=== PATIENT | female | born 1940 | race Caucasian/White ===

== ENCOUNTER → 2016-02-21 | Outpatient (CLI) | payer MEDICARE ==
[~2016-02-21] MED LIST: AMIT25TA20 PO; AMIT25TA9 PO; AMLO10 PO; ASPI81 PO; ASPI81TA81 PO; CALTTAB5 PO; CHOL20003 PO; CRANBERRY AZO PO; DICL-86 PO; ENOX40P SQ; GABA300C5 PO; GLUCTAB PO; MEDR2.5T2 PO; MEDR4PAK PO; METF500T PO; OMEP10CA PO; OXYC-360 PO; PERC5TAB12 PO; PRIL10CA PO; RANI150 PO; RANI150T PO; ROPI0.25 PO; ROPI0.5T PO; SIMV40TA PO; TELM1TAB56 PO; ZOCO40TA PO; [UNRECOGNIZED DRUG - CODE] PO
[2016-02-21 13:15] LABS: AUTOMATED NEUTROPHIL # 4.7 TH/MM3 (1.8-7.7); BASOPHIL # 0.1 TH/MM3 (0-0.2); BASOPHIL % 1.2 % (0.0-2.0); EOSINOPHIL # 0.2 TH/MM3 (0-0.4); EOSINOPHIL % 2.3 % (0.0-4.0); HEMATOCRIT 43.3 % (35.0-46.0); HEMO FLAGS DIFF FINAL; LYMPH % 28.5 % (9.0-44.0); LYMPHOCYTE # 2.2 TH/MM3 (1.0-4.8); MEAN CORPUSCULAR HEMOGLOBIN 30.1 PG (27.0-34.0); MEAN CORPUSCULAR HGB CONC 33.5 % (32.0-36.0); MONO % 6.6 % (0.0-8.0); NEUT % 61.4 % (16.0-70.0); PLATELET COUNT 249 TH/MM3 (150-450); RED BLOOD COUNT 4.81 MIL/MM3 (4.00-5.30); RED CELL DISTRIBUTION WIDTH 13.2 % (11.6-17.2); WHITE BLOOD COUNT 7.7 TH/MM3 (4.0-11.0)
[2016-02-21 13:23] LABS: BACTERIA, URINE RARE /hpf; BLOOD, URINE NEG (NEG); GLUCOSE,URINE NEG (NEG); KETONE, URINE NEG (NEG); MUCUS URINE FEW /lpf (OCC); NITRITE,URINE NEG (NEG); PH, URINE 6.5 (5.0-8.5); SQUAMOUS EPITHELIAL CELL URINE <1 /hpf (0-5); URINE COLOR YELLOW (YELLW/STRAW)
[2016-02-21 13:47] LABS: BICARBONATE 28.7 MEQ/L (21.0-32.0); POTASSIUM 4.1 MEQ/L (3.5-5.1)
== END ==
LOC: CPRE 12:14
PROVIDERS: ATTEND Obstetrics & Gynecology
DX: Z01.812 Encounter for preprocedural laboratory examination (principal); N85.00 Endometrial hyperplasia, unspecified
CPT/HCPCS: 36415; 80048; 81001; 85025

== ENCOUNTER → 2016-02-27 | Day surgery (SDC) | payer MEDICARE ==
[~2016-02-27] VITALS: Ht 160 cm; Wt 80.2 kg
[~2016-02-27] MED LIST changes: -AMIT25TA20 PO; -ASPI81 PO; -CRANBERRY AZO PO; -DICL-86 PO; +DO NOT ADM ANY ANTICOAGULANT DRUGS XX PRN; -ENOX40P SQ; -GLUCTAB PO; +INSULIN HUMAN REGULAR 1,000 UNITS/10 ML VIAL SQ PRN; +KETOROLAC TROMETHAMINE 30 MG/ML (IVP) VIAL IM PRN; +KETOROLAC TROMETHAMINE 60 MG/2 ML (IM) VIAL IM ONE; +LACTATED RINGER'S 1000 ML IV SCH; +METOPROLOL TARTRATE 25 MG TAB PO PRN; +ONDANSETRON HCL 4 MG/2 ML VIAL IV PUSH ONE; +ONDANSETRON HCL 4 MG/2 ML VIAL IV PUSH PRN; -OXYC-360 PO; +OXYTOCIN 10 UNIT/ML AMP ONE; -PRIL10CA PO; +PROPOFOL 200 MG/20 ML AMP IV ONE; -RANI150 PO; +SODIUM CHLORID 0.9% 500 ML IV SCH; -ZOCO40TA PO; -[UNRECOGNIZED DRUG - CODE] PO; +ceFAZolin 2 GM PREMIX 50 ML IV SCH; +oxyCODONE/ACETAMINOPHEN 5 MG/325 MG TAB PO PRN
[2016-02-27 07:17] VITALS: BP 142/57; PULSE 87; RESP 20; TEMP 98.1; O2SAT 96
[2016-02-27 10:44] VITALS: BP 116/59; PULSE 73; RESP 20; TEMP 97.9; O2SAT 99
--- NOTE | 2016-02-29 11:53 | MP ---
cc: LYNDA HOWARD MD DATE OF SURGERY 02/27/2016 PREOPERATIVE DIAGNOSIS Thickened endometrium. POSTOPERATIVE DIAGNOSIS Thickened endometrium. PROCEDURE Examination under anesthesia, hysteroscopy, endometrial resection with MyoSure. SURGEON Dr. Howard ANESTHESIA General endotracheal anesthesia, Dr. Rosales. FLUIDS 750 cc crystalloids. ESTIMATED BLOOD LOSS Minimal. URINE OUTPUT 100 cc on straight cath prior to procedure. FLUID DEFICIT DURING MYOSURE PROCEDURE 420 cc. FINDINGS The endometrial cavity was filled with several smooth-appearing polypoid lesions. PROCEDURE The patient was taken to the operating room where general anesthesia was found to be adequate. She was then prepped and draped in the normal sterile fashion in the dorsal lithotomy position. The urinary bladder was emptied of urine using sterile technique. A weighted speculum was placed in the vagina. A single-tooth tenaculum applied to the anterior lip of the cervix. The uterus sounded to approximately 9 cm. The cervix was gently dilated with Preston dilators sizes 9 through 16. The small MyoSure scope was then inserted into the endometrial cavity. The cavity was distended with saline and the cavity was noted to be filled with smooth-appearing white polypoid lesions. These were then resected with the MyoSure device and sent to pathology. Cutting time was approximately 2-1/2 minutes. Fluid deficit was approximately 420 cc. The MyoSure device and hysteroscope were removed. Hemostasis was assured. The tenaculum was removed from the anterior lip of the cervix. The weighted speculum was removed. The patient was awakened from anesthesia and transferred to the recovery room in stable condition. Pathology was endometrial curettings. MD DONAL Bray/YADIEL /9:15 AM /11:47 AM
== END | disposition home or self-care (01) ==
LOC: HSDC 05:53
PROVIDERS: ATTEND Obstetrics & Gynecology
DX: N84.0 Polyp of corpus uteri (principal); N87.9 Dysplasia of cervix uteri, unspecified; N81.9 Female genital prolapse, unspecified; R93.8 Abnormal findings on diagnostic imaging of other specified body structures; N95.2 Postmenopausal atrophic vaginitis; I10 Essential (primary) hypertension; Z72.0 Tobacco use
CPT/HCPCS: 00952; 58558; 86850; 86900; 86901; 88305; J0690; J1885; J2405; J3010; J7120; J2590

== ENCOUNTER → 2016-06-20 | Outpatient (CLI) | payer MEDICARE ==
[~2016-06-20] MED LIST changes: -DO NOT ADM ANY ANTICOAGULANT DRUGS XX PRN; -INSULIN HUMAN REGULAR 1,000 UNITS/10 ML VIAL SQ PRN; -KETOROLAC TROMETHAMINE 30 MG/ML (IVP) VIAL IM PRN; -KETOROLAC TROMETHAMINE 60 MG/2 ML (IM) VIAL IM ONE; -LACTATED RINGER'S 1000 ML IV SCH; -METOPROLOL TARTRATE 25 MG TAB PO PRN; -ONDANSETRON HCL 4 MG/2 ML VIAL IV PUSH ONE; -ONDANSETRON HCL 4 MG/2 ML VIAL IV PUSH PRN; -OXYTOCIN 10 UNIT/ML AMP ONE; -PROPOFOL 200 MG/20 ML AMP IV ONE; -SODIUM CHLORID 0.9% 500 ML IV SCH; -ceFAZolin 2 GM PREMIX 50 ML IV SCH; -oxyCODONE/ACETAMINOPHEN 5 MG/325 MG TAB PO PRN
== END ==
LOC: CPRE 10:35
PROVIDERS: ATTEND Obstetrics & Gynecology
DX: Z01.812 Encounter for preprocedural laboratory examination (principal)

== ENCOUNTER 2016-06-22 21:24 | Emergency (ER) | payer MEDICARE ==
[~2016-06-22] VITALS: Ht 167.6 cm; Wt 75.0 kg
[~2016-06-22 21:24] MED LIST changes: -ASPI81TA81 PO; -MEDR4PAK PO; -PERC5TAB12 PO; -ROPI0.25 PO
[2016-06-22 21:27] VITALS: BP 174/72; PULSE 72; RESP 16; TEMP 97.9; O2SAT 99
[2016-06-22 22:05] VITALS: BP 136/78; PULSE 80; RESP 16; O2SAT 99
--- NOTE | 2016-06-22 22:41 | PD ---
HPI Chief Complaint: Back/ Neck Pain or Injury Time Seen by Provider: 22:38 Travel History International Travel<30 days: No Contact w/Intl Traveler<30days: No Traveled to known affect area: No History of Present Illness HPI 75-year-old female presents to the emergency department by private transportation the care of family for complaint of low back to right buttock pain radiating into her right lower extremity. Patient has history of degenerative disc disease. No prior history of sciatica. No numbness tingling or weakness of the lower extremity. No bladder or bowel dysfunction. No saddle anesthesia. Patient rates pain as moderate to severe. Patient notes discomfort is worsened by range of motion and ambulation. Patient denies any known precipitating activity. Patient is currently on Macrobid for urinary tract infection and started medication a day and a half ago. No fever no chills no nausea no vomiting. Patient also has history of abnormal uterine biopsy and is scheduled for hysterectomy. Patient's had no reported abnormal vaginal bleeding. Patient denies any fall or injury. Patient states also history of diabetes type 2 that has reportedly been well-controlled. PFSH Past Medical History Arthritis: Yes Blood Disorders: No Anxiety: Yes (PASSES OUT) Cancer: No Cardiovascular Problems: No Diabetes: Yes Endocrine: No Glaucoma: No Genitourinary: No Hepatitis: No Hiatal Hernia: No Hypertension: Yes Immune Disorder: No Musculoskeletal: Yes (ARTHRITIS) Neurologic: No Psychiatric: No Reproductive: No Respiratory: No Thyroid Disease: No Past Surgical History Abdominal Surgery: Yes (APPENDECTOMY) AICD: No Appendectomy: Yes Genitourinary Surgery: Yes (PESSORY IN PRESENTLY TO ELEVATE BLADDER ) Joint Replacement: Yes (PARTIAL RIGHT KNEE REPL) Oral Surgery: Yes (ACHALASIA SX) Pacemaker: No Thoracic Surgery: Yes Social History Alcohol Use: Yes (WINE DAILY) Tobacco Use: No Substance Use: No Allergies-Medications (Allergen,Severity, Reaction): Coded Allergies: Penicillin (Verified Allergy, Severe, HIVES, 06/22/16) Reported Meds & Prescriptions Reported Meds & Active Scripts Active Percocet (Oxycodone-Acetaminophen) 5-325 mg Tab 1 Tab PO Q6H PRN Medrol Dosepak (Methylprednisolone) 4 Mg Dspk 4 Mg PO DIRECTED Per Pharmacist direction Reported Medroxyprogesterone Acetate 2.5 Mg Tab Unknown Dose PO DIRECTED PT TAKES 14 DAYS IN A ROW, ONCE A MONTH Ropinirole 0.5 Mg Tab 0.5 Mg PO BID Omeprazole 10 Mg Cap 20 Mg PO DAILY D3 (Cholecalciferol) 2,000 Unit Cap 1 Cap PO DAILY Gabapentin 300 Mg Cap 300 Mg PO HS Micardis (Telmisartan) 80 Mg Tab 80 Mg PO DAILY Simvastatin 40 Mg Tab 40 Mg PO HS Ranitidine (Ranitidine HCl) 150 Mg Tab 150 Mg PO HS Metformin (Metformin HCl) 500 Mg Tab 500 Mg PO HS With a meal Caltrate 600 (Calcium Carbonate) 1,500 Mg Tab 1 Tab PO DAILY Norvasc (Amlodipine Besylate) 10 Mg Tab 10 Mg PO DAILY Amitriptyline (Amitriptyline HCl) 25 Mg Tab 20 Mg PO HS Review of Systems Except as stated in HPI: all other systems reviewed are Neg Physical Exam Narrative GENERAL: Well-developed well-nourished female in no acute distress no respiratory distress SKIN: Warm and dry. HEAD: Atraumatic. Normocephalic. EYES: Pupils equal and round. No scleral icterus. No injection or drainage. ENT: No nasal bleeding or discharge. Mucous membranes pink and moist. NECK: Trachea midline. No JVD. CARDIOVASCULAR: Regular rate and rhythm. RESPIRATORY: No accessory muscle use. Clear to auscultation. Breath sounds equal bilaterally. GASTROINTESTINAL: Abdomen soft, non-tender, nondistended. Hepatic and splenic margins not palpable. MUSCULOSKELETAL: Extremities without clubbing, cyanosis, or edema. No obvious deformities. Tenderness to palpation along the lower lumbar spine and over the right SI and buttock region; no erythema no induration no vesicular rash no ecchymosis; distally extremity is neurovascular tendon intact; negative straight -leg raising; motor strength 5 over 5; probable bilateral dorsalis pedis pulses , capillary refill brisk and less than 2 seconds per digit; no pallor or coolness noted no edema erythema or increased warmth noted. NEUROLOGICAL: Awake and alert. No obvious cranial nerve deficits. Motor grossly within normal limits. Five out of 5 muscle strength in the arms and legs. Normal speech. PSYCHIATRIC: Appropriate mood and affect; insight and judgment normal. Data Data Last Documented VS Orders Spine, Lumbar - Ltd (Ap & Lat) (06/22/16 ) Ketorolac Inj (Toradol Inj) (06/22/16 22:45) Orphenadrine Inj (Norflex Inj) (06/22/16 22:45) Oxycodone-Acetamin 5-325 Mg (Percocet (06/22/16 23:45) Ondansetron Odt (Zofran Odt) (06/22/16 23:45) [facility] Medical Decision Making Medical Screen Exam Complete: Yes Emergency Medical Condition: Yes Medical Record Reviewed: Yes Interpretation(s) L/S spine xr: FINDINGS: The lowest five lumbar type vertebral bodies will be numbered 1 through 5 for the purposes of this study. There is grade I anterolisthesis of L4 in relation to L5 and L5 in relation to S1. Disc space narrowing is noted at L4-L5 and L5- S1. No acute compression fracture is noted. CONCLUSION: 1. Grade I anterolisthesis of L4 in relation to L5 and L5 in relation to S1. 2. Degenerative disc disease at L4-L5 and L5-S1. 3. Degenerative changes throughout the lumbar and lower thoracic spine. 4. No acute compression fracture. Scot Aden MD on June 22, 2016 at 22:57 Differential Diagnosis Sciatica, lumbar disc disease, HNP; no findings to support cauda equina syndrome Narrative Course Imaging study ordered patient administered Toradol 60 mg IM along with Norflex 60 mg At 11:40 PM patient states pain improved given Percocet 5/325 one dose by mouth along with Zofran 4 mg one dose by mouth Imaging study reveals chronic changes no compression fracture patient is stable for outpatient management and follow-up with her primary care provider will be given prescription for Medrol Dosepak and Percocet Diagnosis Primary Impression: Sciatica associated with disorder of lumbar spine Referrals: Primary Care Physician 2 days Patient Instructions: Narcotic given in the ED, General Instructions Additional Instructions: Take pain medication as prescribed as needed; be aware that narcotic pain medication may cause constipation and increased risk for fall impair judgment and delay reaction time: May consider taking MiraLAX along with your narcotic pain medication to avoid development of constipation and increase fluid hydration Take prescription steroid taper over the next several days do not take nonsteroidal anti-inflammatory medication such as ibuprofen/Advil/Motrin/Aleve/ Naprosyn/naproxen will taking this medication Monitor blood sugars closely while on steroid therapy Take acetaminophen/Tylenol as needed for fever 100.4F or greater Complete course of antibiotic as presently prescribed Return to the emergency department for any concerns or change condition Follow-up with primary care provider call office on Friday to schedule follow- up appointment Med/Other Pt SpecificInfo: Prescription(s) given Scripts Oxycodone-Acetaminophen (Percocet)5-325 mg Tab1 Tab PO Q6H PRN (PAIN) #12 TAB Ref 0 Prov:Bertha Mcqueen MD 06/22/16 Methylprednisolone Dosepak (Medrol Dosepak)4 Mg Dspk4 Mg PO DIRECTED #1 DSPK Ref 0 Per Pharmacist direction Prov:Bertha Mcqueen MD 06/22/16 Disposition: 01 DISCHARGE HOME Condition: Stable Bertha Mcqueen MD June 22, 2016 22:41
[2016-06-22] MEDS ORDERED: KETOROLAC TROMETHAMINE 60 MG/2 ML (IM) VIAL IM ONE (22:45)
[2016-06-22] MEDS ORDERED: ORPHENADRINE INJ 60 MG/2 ML AMP IM ONE (22:45)
--- NOTE | 2016-06-22 23:04 | RADRPT ---
EXAM DATE/TIME: 06/22/2016 22:50 [facility] COMPARISON: No previous studies available for comparison. INDICATIONS : Fall. Low back pain. MEDICAL HISTORY : None. SURGICAL HISTORY : None. ENCOUNTER: Initial ACUITY: 1 day PAIN SCORE: 7/10 LOCATION: Bilateral paraspinal FINDINGS: The lowest five lumbar type vertebral bodies will be numbered 1 through 5 for the purposes of this st udy. There is grade I anterolisthesis of L4 in relation to L5 and L5 in relation to S1. Disc space narrowing is noted at L4-L5 and L5-S1. No acute compression fracture is noted. CONCLUSION: 1. Grade I anterolisthesis of L4 in relation to L5 and L5 in relation to S1. 2. Degenerative disc disease at L4-L5 and L5-S1. 3. Degenerative changes throughout the lumbar and lower thoracic spine. 4. No acute compression fracture. Scot Aden MD on June 22, 2016 at 22:57 Board Certified Radiologist. This report was verified electronically.
[2016-06-22] MEDS ORDERED: PERC5TAB12 PO (23:42)
[2016-06-22] MEDS ORDERED: MEDR4PAK PO (23:42)
[2016-06-22] MEDS ORDERED: ONDANSETRON ODT 4 MG TAB PO ONE (23:45)
[2016-06-22] MEDS ORDERED: oxyCODONE/ACETAMINOPHEN 5 MG/325 MG TAB PO ONE (23:45)
== END 2016-06-23 00:12 | disposition home or self-care (01) ==
LOC: NEPC 21:24
DX: M51.36 Other intervertebral disc degeneration, lumbar region (principal); M54.31 Sciatica, right side; E11.9 Type 2 diabetes mellitus without complications; I10 Essential (primary) hypertension
CPT/HCPCS: 72100; 96372; 99283; J1885; J2360

== ENCOUNTER → 2016-09-25 | Outpatient (CLI) | payer MEDICARE ==
[~2016-09-25] MED LIST changes: +ASPI-110 PO; +CALTCHW5 PO; +COLA100C PO; +CRAN500C9 PO; +DICL1GEL7 TOPICAL; +IBUP-232 PO; +MACR100C3 PO; +MEDR4PAK PO; +OXYC1TAB63 PO; +PERC5TAB12 PO
== END ==
LOC: CPRE 10:13
PROVIDERS: ATTEND Obstetrics & Gynecology
DX: Z01.812 Encounter for preprocedural laboratory examination (principal); N81.89 Other female genital prolapse

== ENCOUNTER 2016-10-01 05:51 | Observation (INO) | payer MEDICARE ==
[~2016-10-01] VITALS: Ht 162.6 cm; Wt 81.7 kg
[~2016-10-01 05:51] MED LIST changes: -AMLO10 PO; -CALTTAB5 PO; -COLA100C PO; -IBUP-232 PO; -MEDR2.5T2 PO; -MEDR4PAK PO; -OXYC1TAB63 PO; -PERC5TAB12 PO
[2016-10-01] MEDS ORDERED: METOPROLOL TARTRATE 25 MG TAB PO PRN (06:15)
[2016-10-01] MEDS ORDERED: SODIUM CHLORID 0.9% 500 ML IV PRN (06:15)
[2016-10-01] MEDS ORDERED: CHLORHEXIDINE GLUCONATE 2 % 1 PACK (2 CLOTHS) TOPICAL PRN (06:15)
[2016-10-01] MEDS ORDERED: INSULIN HUMAN REGULAR 1,000 UNITS/10 ML VIAL SQ PRN (06:15)
[2016-10-01] MEDS ORDERED: LACTATED RINGER'S 1000 ML IV PRN (06:15)
[2016-10-01] MEDS ORDERED: ceFAZolin 2 GM PREMIX 50 ML IV SCH (06:15)
[2016-10-01] MEDS ORDERED: POVIDONE IODINE 5% (ANTISEPSIS KIT) 4 APPLICATIONS EACH NARE PRN (06:15)
[2016-10-01 06:56] LABS: AUTOMATED NEUTROPHIL # 4.6 TH/MM3 (1.8-7.7); BASOPHIL # 0.1 TH/MM3 (0-0.2); BASOPHIL % 1.3 % (0.0-2.0); EOSINOPHIL # 0.3 TH/MM3 (0-0.4); EOSINOPHIL % 3.7 % (0.0-4.0); HEMO FLAGS DIFF FINAL; LYMPH % 24.3 % (9.0-44.0); LYMPHOCYTE # 1.7 TH/MM3 (1.0-4.8); MEAN CELL VOLUME 91.9 FL (80.0-100.0); MEAN CORPUSCULAR HEMOGLOBIN 31.6 PG (27.0-34.0); MEAN CORPUSCULAR HGB CONC 34.3 % (32.0-36.0); MONO % 6.3 % (0.0-8.0); NEUT % 64.4 % (16.0-70.0); PLATELET COUNT 262 TH/MM3 (150-450); RED BLOOD COUNT 4.24 MIL/MM3 (4.00-5.30); WHITE BLOOD COUNT 7.1 TH/MM3 (4.0-11.0)
[2016-10-01] MEDS ORDERED: ESTROGENS CONJUGATED VAG CREA 15 APPL/30 GM TUBE ONE (07:09)
[2016-10-01] MEDS ORDERED: MIDAZOLAM HCL 2 MG/2 ML VIAL ONE (07:44)
[2016-10-01] MEDS ORDERED: ACETAMINOPHEN 1000 MG/100 ML VIAL ONE (07:44)
[2016-10-01] MEDS ORDERED: FAMOTIDINE 20 MG/2 ML VIAL ONE (07:45)
[2016-10-01] MEDS ORDERED: DEXAMETHASONE SOD PHOS 4 MG/ML VIAL ONE (07:45)
[2016-10-01] MEDS ORDERED: HYDROmorphone HCL PF 2 MG/ML VIAL ONE (07:45)
[2016-10-01] MEDS ORDERED: SUGAMMADEX SODIUM 200 MG/2 ML VIAL IV PUSH ONE ×2 (07:45)
[2016-10-01] MEDS ORDERED: BUPIVACAINE/EPINEPHRINE 0.25% PF 30 ML VIAL INFIL ONE (09:02)
[2016-10-01] MEDS ORDERED: diphenhydrAMINE HCL 50 MG/ML VIAL IV PRN (10:45)
[2016-10-01] MEDS ORDERED: SODIUM CHLORIDE 0.9% FLUSH 10 ML FLUSH IV FLUSH PRN (10:45)
[2016-10-01] MEDS ORDERED: ONDANSETRON HCL 4 MG/2 ML VIAL IVP PRN (10:45)
[2016-10-01] MEDS ORDERED: NALOXONE HCL 0.4 MG/ML AMP IV PRN (10:45)
[2016-10-01] MEDS ORDERED: HYDROmorphone HCL PCA 6 MG/30 ML IV SCH (10:45)
[2016-10-01] MEDS: DOCUSATE SODIUM 100 MG CAP PO SCH ×2 (10:45→22:42)
[2016-10-01] MEDS ORDERED: DEXTROSE 50% IN WATER 50 ML VIAL(D50) IV PRN (10:45)
[2016-10-01] MEDS ORDERED: GLUCAGON 1 MG/ML VIAL OTHER PRN (10:45)
[2016-10-01] MEDS ORDERED: IBUPROFEN 600 MG TAB PO PRN (10:45)
[2016-10-01] MEDS: INSULIN NovoLIN REGULAR SUPPLEMENTAL SCALE SQ SCH ×3 (11:00→21:00)
[2016-10-01] MEDS ORDERED: fentaNYL CITRATE 250 MCG/5 ML AMP ONE (11:08)
[2016-10-01] MEDS: LACTATED RINGER'S 1000 ML INJ 1,000 ML IV SCH ×2 (11:25→19:57)
[2016-10-01] MEDS ORDERED: DO NOT ADM ANY ANTICOAGULANT DRUGS PRN (11:30)
--- NOTE | 2016-10-01 11:32 | MP ---
cc: LYNDA CARRIZALES DATE OF SURGERY 10/01/2016 PREOPERATIVE DIAGNOSIS Pelvic prolapse, endometrial hyperplasia, thickened endometrium. POSTOPERATIVE DIAGNOSIS Pelvic prolapse, endometrial hyperplasia, thickened endometrium. PROCEDURE Examination under anesthesia, vaginal hysterectomy, anterior and posterior colporrhaphy, perineorrhaphy, transobturator tape, cystoscopy. SURGEON Dr. Carrizales JIG MAKER Yuliet Bojorquez ANESTHESIA General endotracheal anesthesia. FLUIDS 1600 cc crystalloid ESTIMATED BLOOD LOSS 50 cc URINE OUTPUT 800 cc clear yellow at the end of the procedure. FINDINGS Uterus was approximately 8-10 weeks in size on examination under anesthesia, grade 3 cystocele, grade 2 rectocele, grade 3 uterine prolapse was noted. PROCEDURE The patient was taken to the operating room where general anesthesia was found to be adequate. She was then prepped and draped in the normal sterile fashion in the dorsal lithotomy position. A Kelley catheter was inserted into the urinary bladder using sterile technique. A weighted speculum was placed in the vagina. A single-toothed tenaculum applied to the anterior lip of the cervix. Local anesthetics was then infiltrated circumferentially. In the cervicovaginal reflection, an incision was then made with the Bovie cutting current in the cervicovaginal reflection. The bladder was gently dissected off the anterior surface of the cervix and the uterus. The posterior peritoneum was entered sharply using curved Kingston scissors. Christo clamps were then used to clamp the uterosacral ligaments bilaterally. These were transected and suture ligated. The remaining broad ligaments, cardinal ligaments, uterine arteries were clamped bilaterally with Christo clamps, transected and suture ligated. The utero-ovarian ligaments were clamped bilaterally with Christo clamps, transected and suture ligated. The fallopian tubes were then tied in the midline. The cervix and the uterus were sent to pathology. A Wong culdoplasty was performed through the uterosacral ligaments, posterior peritoneum and this was tied. The uterosacral ligaments were tied in the midline. An Allis clamp was then placed proximal to the urethra on the anterior vaginal mucosa and an incision was made to the level of the vaginal cuff and the vaginal mucosa was dissected laterally to the level of the pubic rami. Imbricating sutures were then placed to reduce the large cystocele and these were tied in the midline. A small amount of redundant anterior vaginal mucosa was trimmed and the vaginal mucosa was reapproximated in the midline using a running suture of 0 Vicryl. The vaginal cuff was then closed in a transverse fashion using a running suture of 0 Vicryl. The weighted speculum was removed. Allis clamps were placed bilaterally on the perineum and an Allis clamp was placed at the apex of the rectocele. The posterior vaginal mucosa was infiltrated with local anesthetic. A transverse incision was made across the perineum and vertically towards the apex of the rectocele. The posterior vaginal mucosa was reflected laterally and dissected from the rectocele. Imbricating sutures again were placed and tied in the midline to reduce the rectocele. A small amount of posterior vaginal mucosa was trimmed and the remaining vaginal mucosa was reapproximated in the midline using 0 Vicryl including down to the perineum. A 1 cm was made 1-2-cm proximal to the urethra for the TOT placement. Dissection was performed laterally to the pubic rami using blunt dissection with Metzenbaum scissors. The incision was made 4 cm lateral to the clitoris on either side for passage of the hook for the TOT. This was passed through the obturator foramen and used to draw the sling into place from the outside in method. The Coleen sling was then positioned in the midline. A Milagro clamp was used to ensure that undue tension was not applied. The ends were trimmed at the skin and the plastic sheaths were removed. The Milagro clamp was removed and the vaginal mucosa was reapproximated over the sling with two [id number] sutures of 0 Vicryl. The skin incisions were closed with 4-0 Monocryl. Cystoscopy was performed. Urine was noted to be effluxing from both of the ureteral meatuses and no bladder injury was noted. The cystoscope was removed. The Kelley catheter was replaced. Vaginal packing was placed that was moistened with saline. Hemostasis was assured. The sponge, lap, needle and instrument counts were correct. Pathology was uterus and cervix. The patient was awakened from anesthesia and transferred to the recovery room in stable condition. MD DONAL Bray/AUDREY /11:00 AM /11:22 AM CLAIRE
[2016-10-01] MEDS ORDERED: NEOSTIGMINE 3 MG/3 ML SYR IV ONE (12:00)
[2016-10-01] MEDS ORDERED: KETOROLAC TROMETHAMINE 60 MG/2 ML (IM) VIAL IM ONE (12:00)
[2016-10-01] MEDS ORDERED: ONDANSETRON HCL 4 MG/2 ML VIAL IV PUSH ONE (12:00)
[2016-10-01] MEDS ORDERED: PROPOFOL 200 MG/20 ML AMP IV ONE (12:00)
[2016-10-01] MEDS ORDERED: LACTATED RINGER'S 1000 ML INJ 1,000 ML IV ONE (12:00)
[2016-10-01 17:00] VITALS: BP 156/76; PULSE 95; RESP 18; TEMP 98.1; O2SAT 95
[2016-10-01 20:00] VITALS: BP 133/58; PULSE 88; RESP 17; TEMP 97.2; O2SAT 92
[2016-10-01] MEDS ORDERED: metFORMIN HCL 500 MG TAB PO SCH (21:00)
[2016-10-01] MEDS ORDERED: PRAVASTATIN SOD 80 MG TAB PO SCH (21:00)
[2016-10-01] MEDS ORDERED: AMITRIPTYLINE HCL 10 MG TAB PO SCH (21:00)
[2016-10-01] MEDS ORDERED: SODIUM CHLORIDE 0.9% FLUSH 10 ML FLUSH IV FLUSH SCH (21:00)
[2016-10-01] MEDS ORDERED: FAMOTIDINE 20 MG TAB PO SCH (21:00)
[2016-10-01] MEDS ORDERED: GABAPENTIN 300 MG CAP PO SCH (21:00)
[2016-10-01] MEDS: PCA - TOTAL MG DILAUDID DELIVERED PER SHIFT OTHER SCH (22:00)
[2016-10-02] VITALS: BP 134/75; PULSE 82; RESP 18; TEMP 97; O2SAT 94
[2016-10-02 04:00] VITALS: BP 144/68; PULSE 80; RESP 17; TEMP 97.5; O2SAT 91
[2016-10-02] MEDS: LACTATED RINGER'S 1000 ML INJ 1,000 ML IV SCH (04:00)
[2016-10-02] MEDS: PCA - TOTAL MG DILAUDID DELIVERED PER SHIFT OTHER SCH (06:00)
[2016-10-02] MEDS: INSULIN NovoLIN REGULAR SUPPLEMENTAL SCALE SQ SCH (06:30)
[2016-10-02] MEDS ORDERED: oxyCODONE/ACETAMINOPHEN 5 MG/325 MG TAB PO PRN ×2 (07:00)
[2016-10-02 07:02] LABS: BASOPHIL % 0.3 % (0.0-2.0); EOSINOPHIL % 0.3 % (0.0-4.0); HEMATOCRIT 38.6 % (35.0-46.0); HEMO FLAGS DIFF FINAL; LYMPH % 14.8 % (9.0-44.0); LYMPHOCYTE # 1.9 TH/MM3 (1.0-4.8); MEAN CELL VOLUME 93.2 FL (80.0-100.0); MEAN CORPUSCULAR HEMOGLOBIN 30.3 PG (27.0-34.0); MEAN CORPUSCULAR HGB CONC 32.5 % (32.0-36.0); MONO % 6.1 % (0.0-8.0); NEUT % 78.5 % (16.0-70.0); PLATELET COUNT 264 TH/MM3 (150-450); RED BLOOD COUNT 4.14 MIL/MM3 (4.00-5.30); RED CELL DISTRIBUTION WIDTH 13.1 % (11.6-17.2); WHITE BLOOD COUNT 12.7 TH/MM3 (4.0-11.0)
[2016-10-02 07:50] VITALS: BP 151/67; PULSE 77; RESP 20; TEMP 97.6; O2SAT 93
--- NOTE | 2016-10-02 08:05 | HHI.PR ---
Subjective Remarks Doing well, pain is well controlled, eating well. Objective Vital Signs Vital Signs Date Time Temp Pulse Resp B/P (MAP) Pulse Ox O2 Delivery O2 Flow Rate FiO2 10/02/16 06:00 20 10/02/16 04:00 97.5 80 17 144/68 (93) 91 10/02/16 00:00 97.0 82 18 134/75 (94) 94 10/01/16 22:00 20 10/01/16 20:00 97.2 88 17 133/58 (83) 92 10/01/16 17:00 98.1 95 18 156/76 (102) 95 10/01/16 16:00 98.3 98 22 131/65 (87) 95 Nasal Cannula 2 10/01/16 15:00 101 19 144/69 (94) 95 Nasal Cannula 2 10/01/16 14:00 96 17 144/67 (92) 92 Nasal Cannula 2 10/01/16 13:00 97 17 159/72 (101) 94 Nasal Cannula 2 10/01/16 12:00 90 22 140/67 (91) 96 Nasal Cannula 3 10/01/16 11:45 71 20 142/66 (91) 95 Nasal Cannula 3 10/01/16 11:30 70 20 136/63 (87) 95 Nasal Cannula 3 10/01/16 11:25 20 10/01/16 11:15 83 19 132/53 (79) 95 Nasal Cannula 3 10/01/16 11:00 88 12 140/63 (88) 94 Nasal Cannula 3 10/01/16 10:59 98.5 91 12 137/65 (89) 96 Nasal Cannula 3 I/O 10/01/16 10/01/16 10/01/16 10/02/16 10/02/16 10/02/16 07:00 15:00 23:00 07:00 15:00 23:00 Intake Total 1650 ml 1131 ml Output Total 850 ml 550 ml 1400 ml Balance 800 ml 581 ml -1400 ml Intake Oral 540 ml IV Total 50 ml 591 ml Other 1600 ml Output Urine Total 800 ml 550 ml 1400 ml Estimated Blood Loss 50 ml Result Diagram: 10/02/16 0630 10/02/16 0649 Objective Remarks Chest is clear, regular rate and rhythm. Abdomen is soft and non-distended. Incisions are clean and dry. Ext no CCE. VE packing removed A/P Assessment and Plan Post Op Day 1 Doing well Home today and return to office in two weeks. Norma Howard MD Oct 02, 2016 08:05
[2016-10-02] MEDS ORDERED: OXYC1TAB63 PO (08:14)
[2016-10-02] MEDS ORDERED: COLA100C PO (08:14)
[2016-10-02] MEDS ORDERED: IBUP-232 PO (08:14)
--- NOTE | 2016-10-02 08:16 | HHI.DCPOC ---
Discharge Care Plan Your Health Problems Are: Pelvic pain Report Symptoms to Your Doctor -Temperature above 100.5 degrees -Redness, of incision or excessive or foul smelling drainage -Unusual pain or calf pain -Increased vaginal bleeding -Painful or difficulty urinating -Feelings of extreme sadness or anxiety after 2 weeks Goals to Promote Your Health * To prevent worsening of your condition and complications * To maintain your health at the optimal level Directions to Meet Your Goals Take your medications as prescribed Follow your dietary instruction Follow activity as directed Ensure plenty of rest for recovery Drink fluids for hydration Keep your appointments as scheduled Take your immunizations and boosters as scheduled If your symptoms worsen call your PCP, if no PCP go to Urgent Care Center or Emergency Room Smoking is Dangerous to Your Health. Avoid second hand smoke Call the 24-hour crisis hotline for domestic abuse at Norma Howard MD Oct 02, 2016 08:16
[2016-10-02] MEDS ORDERED: LOSARTAN 50 MG TAB PO SCH (09:00)
[2016-10-02] MEDS ORDERED: PANTOPRAZOLE SOD 20 MG DELAYED RELEASE TAB PO SCH (09:00)
[2016-10-02] MEDS ORDERED: ENOXAPARIN SODIUM 40 MG/0.4 ML SYRINGE SQ SCH (10:00)
== END 2016-10-02 11:38 | disposition home or self-care (01) ==
LOC: HSDC 05:51 → HOCA 10:46
PROVIDERS: ADMIT Obstetrics & Gynecology; ATTEND Obstetrics & Gynecology
DX: N81.4 Uterovaginal prolapse, unspecified (principal); D25.9 Leiomyoma of uterus, unspecified; N80.0 Endometriosis of uterus; N88.8 Other specified noninflammatory disorders of cervix uteri; E11.9 Type 2 diabetes mellitus without complications; Z79.84 Long term (current) use of oral hypoglycemic drugs
CPT/HCPCS: 00860; 57265; 57288; 58550; 82565; 82948; 85025; 86850; 86900; 86901; 88307; 96372; 96374; 96375; C1771; G0378; J0131; J0690; J1100; J1170; J1650; J1885; J2250; J2405; J2710; J3010; J7120